=== PATIENT | male | born 1970 | race Caucasian/White ===

== ENCOUNTER 2018-12-21 05:43 | Day surgery (SDC) | payer OTHER ==
--- NOTE | 2018-12-20 19:56 | PDGENHP ---
History and Physical - Chief Complaint RIGHT HIP PAIN - History of Present Illness Diagnosis: 1.~LEFT~HIP PAIN 2. Bilateral Avascular Necrosis; LEFT (stage:3)>>>RIGHT(Stage: 1) 3. 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 ~Joo enjoys walking and stationary bike. Souleymane's~left~hip pain~started April 2018, with~no~recalled trauma or injury, and with~no~previous complaints. Souleymane was given Prednisone 10 mg #10 for his increased hip pain at the end of , initially he had significant relief but soon there after he had~ debilitating~Left hip pain. Presentation today is of~anterior, lateral,~(radiating down to Left knee)~left~ hip pain. ~The hip~does not~wake him~at night and~does~click and catch on~him. Sitting~can be uncomfortable~for him.~Joodoes not~report suffering from lower back pain episodes. Joohas~participated in physical therapy and has not~tried other conservative measures. Joohas~utilized medication for pain management, including Prednisone~( prescribed) and Tramadol.~Joohas used medication since the pain began. Joodenies issues with the right~hip. ~ Joounderstands that~judith~has a hip and pelvis problem which should be researched and wishes to get a better understanding of~his~hip status, followed by an establishment of a treatment strategy, hoping~judith~would be able to get back to~his~well being active life. History: Past medical history:~~ HTN, Hypercholesterolemia~ Souleymane drinks ETOH on a daily basis describes himself as a~"high functioning alcoholic." Relevant familial history:~None which is relevant~ Past surgical history:~ No. Surgery Anesthesia 1 Lumpectomies x2 general 2 Right ear abscess drainage general Joodenies problematic issues with general anesthesia in the past. I have reviewed, verified and agree with the past medical, surgical, family and social history. Current Medications:~has a current medication list which includes the following prescription(s): atorvastatin, gabapentin, and lisinopril. ALLERGIES:~has No Known Allergies. Objective: Physical Examination: Joois 5~feet~11~inches tall and weighs~208~Lbs. Shoe size~8.5. Joois AAO x3; judith~is well-nourished, in NAD. Skin is warm and dry. ~ Breathing is non-labored. ~CV with RRR by pulse. Abdomen is soft, NTND. Currently,~judith~walks with a~abnormal~antalgic gait Lower spine examination is~negative~for sciatic or femoral nerve irritation with negative~SLR &~femoral stretch tests. Range of motion of the spine is normal~for flexion, extension, and rotations,~with no~associated pain. Strength, Sensation and pulses are~normal -~bilaterally Ankles and knees exams are~normal~and~no~mal-alignment is evident.~ Judith~has~no leg length discrepancy. Thigh circumference is~symmetric~with no evidence for muscle atrophy~on both~ sides. Hip ROM (degrees): FL ER At 90~hip FL IR At 90~hip FL AB AD R 105 55 0 30 0 L 105 55 -2 30 0 Specific hip and pelvis tests: Impingement Test CHELLY Roll R Negative Negative Negative L +++ +++ + Glut. Med ITB R Negative 5/5 strength Negative 5/5 strength L Negative 5/5 strength Negative 5/5 strength Greater trochanteric burse is~pain free~on both hips. Piriformis tests: FAIR is~negative,~with no~local signs of neuritis related to sciatic nerve. SIJs examination is~normal~with~normal~CHELLY in relation and local tenderness. Hamstrings tests are~negative~functional contraction and negative~tendinopathy both hips. Imaging: Radiology studies which I~have personally reviewed, analyzed and measured are below: XR: AP of the hip and pelvis: Performed in a~suboptimal~technique Coccyx~below level of~pubic symphysis 0 degrees [place]~Lines are preserved. Minimal~Pathological signs are seen in the Symphysis Pubis.~ Minimal~Pathological signs are seen at the Ischial~tuberosity. ~ Specific measurements show: NSA~ LCE Sourcil~Angle Sharp's angle Lat. Cam Lat. Pincer C.Over~sign Head~Coverage % ATDmm R N 32 0 40 + - - N N L N 29 0 41 + - - N N Pos. wall sign ISS NAD ~~Dysplasia Comments R Negative Negative 10.3~mm Negative L Negative Negative 9.9~mm Negative Sclerosis Sup. Lat. OA Cysts Joint Space-WBZ Joint Space-Medial R + + + 3.8~mm 2.6~mm L + + + 3.5~mm 2.9~mm Left femoral head with sclerosis and subchondral lucency~ MRI shows:~Bilateral femoral head avascular necrosis,~Courteny Classification~ III on the Left; on the Right~Courtney Classification~I Impression and plan:~ Joois a~48 y.o.~active male~suffering from symptomatic~LEFT~hip pain due to Avascular Necrosis~causing significant disability to~him~and altering~his~ sport and life activities. Physical examination, imaging, and~his~story correspond with the diagnosis mentioned above. The etiology for Souleymane's AVN is likely high alcohol intake, while Prednisone is a known risk factor, this was taken after the onset of his symptoms. We explained that~since his Left hip has advanced avascular necrosis, a~core decompression~procedure would~not be a viable option and that a~Total~Hip~ Replacement~could relieve his pain. Since the avascular necrosis in his Right hip is not advanced, Core Decompression with BMAC is still a viable option. We discussed both the Total Hip Replacement and Core Decompression procedures and their respective post op rehabilitation. Joowill review the info presented. We will refer Souleymane to to evaluate for a LEFT Total Hip Replacement. SouleymaneKenyattawill talk with our production control scheduler about possible surgery dates for Right Hip Core Decompression Joois happy with this plan. I have also supplied~him~with handouts, outlining the expected surgical treatment and rehab involved. I wish~SouleymaneKenyattaall the best, ~~ DEBORAH Traore History Information - Allergies/Home Medication List Allergies/Adverse Reactions: No Known Allergies Allergy (Unverified 12/20/18 14:40) Home Medications: Advil 12/20/18 [Last Taken Unknown] Atorvastatin Calcium 12/20/18 [Last Taken Unknown] Lisinopril 05/20/19 [Last Taken Unknown] I have personally reviewed and updated: medical history - Social History Smoking Status: Former smoker Review of Systems Review of Systems: Physical Exam Physical Exam:
[2018-12-21] MEDS ORDERED: PREGABALIN 150 MG CAP PO ONE (06:00)
[2018-12-21] MEDS ORDERED: ceFAZolin 2 GM/DEXTROSE 100 ML IV ONE (06:00)
[2018-12-21] MEDS ORDERED: LR 1,000 ML IV ONE (06:00)
[2018-12-21] MEDS ORDERED: ACETAMINOPHEN 500 MG TAB PO ONE (06:00)
[2018-12-21] MEDS ORDERED: ROCURONIUM 50 MG/5 ML VIAL ONE (06:42)
[2018-12-21] MEDS ORDERED: DEXAMETHASONE 4 MG/ML VIAL ONE (06:42)
[2018-12-21] MEDS ORDERED: ONDANSETRON 4 MG/2 ML VIAL ONE (06:42)
[2018-12-21] MEDS ORDERED: PROPOFOL 200 MG/20 ML VIAL ONE ×2 (06:42→07:21)
[2018-12-21] MEDS ORDERED: LIDOCAINE 2% 5 ML SDV ONE (06:42)
[2018-12-21] MEDS ORDERED: fentaNYL 250 MCG/5 ML INJ ONE (06:42)
[2018-12-21] MEDS ORDERED: BUPIVACAINE/EPI 0.25% 30 ML SDV ONE ×2 (06:58→07:10)
--- NOTE | 2018-12-21 06:58 | POSTANESTH ---
Post Anesthetic Evaluation Cardiovascular Status: Normal, Stable Respiratory Status: Normal, Stable Level of Consciousness/Mental Status: Can Participate in Eval Pain Control: Adequate, Prn Tx Ordered Nausea/Vomiting Control: Adequate, Prn Tx Ordered Complications Possibly Related to Anesthesia: None Noted
--- NOTE | 2018-12-21 06:58 | PDANEPAE ---
ANE Past Medical History - Cardiovascular History Hx Hypertension: No Hx Arrhythmias: No Hx Chest Pain: No Hx Coronary Artery / Peripheral Vascular Disease: No Hx CHF / Valvular Disease: No Hx Palpitations: No - Pulmonary History Hx COPD: No Hx Asthma/Reactive Airway Disease: No Hx Recent Upper Respiratory Infection: No Hx Oxygen in Use at Home: No Hx Sleep Apnea: No Sleep Apnea Screening Result - Last Documented: Negative - Neurologic History Hx Cerebrovascular Accident: No Hx Seizures: No Hx Dementia: No - Endocrine History Hx Diabetes: No - Renal History Hx Renal Disorders: No - Liver History Hx Hepatic Disorders: No - Neurological & Psychiatric Hx Hx Neurological and Psychiatric Disorders: No - Cancer History Hx Cancer: No - Congenital Disorder History Hx Congenital Disorders: No - GI History Hx Gastrointestinal Disorders: No - Other Health History Other Health History: ECZEMA - Chronic Pain History Chronic Pain: No - Surgical History Prior Surgeries: L MARCO ANTONIO 11/2017. LUMPECTOMY ANE Review of Systems Review of Systems: - Exercise capacity METS (RN): 4 METS ANE Patient History - Allergies Allergies/Adverse Reactions: No Known Allergies Allergy (Unverified 12/20/18 14:40) - Home Medications Home Medications: Advil 12/20/18 [Last Taken 12/20/18] Atorvastatin Calcium 12/20/18 [Last Taken 12/20/18] Lisinopril 12/20/18 [Last Taken 12/20/18] - NPO status NPO Since - Liquids (Date): 12/21/18 NPO Since - Liquids (Time): 01:00 NPO Since - Solids (Date): 12/20/18 NPO Since - Solids (Time): 23:00 - Smoking Hx Smoking Status: Former smoker - Family Anes Hx Family Hx Anesthesia Complications: MOTHER W/POST ANESTHESIA NAUSEA ANE Labs/Vital Signs - Vital Signs Blood Pressure: 141/96 Heart Rate: 95 Respiratory Rate: 16 O2 Sat (%): 93 Height: 180.34 cm Weight: 90.718 kg ANE Physical Exam - Airway Neck exam: FROM Mallampati Score: Class 2 Mouth exam: normal dental/mouth exam - Pulmonary Pulmonary: no respiratory distress, no rales or rhonchi, clear to auscultation - Cardiovascular Cardiovascular: regular rate and rhythym, no murmur, rub, or gallop - ASA Status ASA Status: II ANE Anesthesia Plan Anesthesia Plan: general endotracheal anesthesia
[2018-12-21] MEDS ORDERED: fentaNYL 100 MCG/2 ML INJ IVP PRN (08:05)
[2018-12-21] MEDS ORDERED: LR 500 ML IV PRN (08:05)
[2018-12-21] MEDS ORDERED: ONDANSETRON 4 MG/2 ML VIAL IVP PRN (08:05)
[2018-12-21] MEDS ORDERED: PHENYLEPHRINE HCL 100 MCG/ML SYR IVP PRN (08:05)
[2018-12-21] MEDS ORDERED: NALOXONE HCL 0.4 MG/ML INJ IVP PRN (08:05)
[2018-12-21] MEDS ORDERED: PROMETHAZINE HCL 25 MG/ML INJ IVP PRN (08:05)
[2018-12-21] MEDS ORDERED: ALBUTEROL 3 ML DEYVIAL IH PRN (08:05)
[2018-12-21] MEDS ORDERED: oxyCODONE IR 5 MG TAB PO PRN (08:05)
[2018-12-21] MEDS ORDERED: MEPERIDINE 25 MG/0.5 ML AMP IVP PRN (08:05)
[2018-12-21] MEDS ORDERED: ACETAMINOPHEN 500 MG TAB PO PRN (08:05)
[2018-12-21] MEDS ORDERED: HYDROmorphONE/DILAUDID 1 MG/ML INJ IVP PRN (08:05)
[2018-12-21] MEDS ORDERED: NS 500 ML IV PRN (08:05)
[2018-12-21] MEDS ORDERED: SUGAMMADEX SODIUM 200 MG/2 ML VIAL IVP ONE (08:43)
[2018-12-21] MEDS ORDERED: fentaNYL 100 MCG/2 ML INJ ONE (09:11)
[2018-12-21] MEDS ORDERED: DIAZEPAM 5 MG TAB PO PRN (09:35)
[2018-12-21] MEDS ORDERED: DIAZEPAM 10 MG/2 ML SYR IVP PRN (09:38)
[2018-12-21 10:06] VITALS: BP 125/99
--- NOTE | 2018-12-21 10:09 | POSTOPPROG ---
Post Op Note Date of Operation: 12/21/18 Surgeon: Mandeep Cote Baby Attendant: Dr. Colon Anesthesia: GET(General Endotracheal) Pre-op Diagnosis: RIGHT HIP AVN Post-op Diagnosis: RIGHT HIP AVN Procedure: Right hip core decompression with BMAC Inf/Abcess present in the surg proc area at time of surgery?: No
== END 2018-12-21 11:04 | disposition home or self-care (01) ==
LOC: FSGY 05:43
PROVIDERS: ATTEND Orthopaedic Surgery Sports Medicine
PROC: BQ101ZZ Fluoroscopy of Right Hip using Low Osmolar Contrast (ICD-10-PCS; principal; 2018-12-21 07:15)
PROC: 0Q8 Lower Bones, Division (ICD-10-PCS; principal; 2018-12-21 07:15)
PROC: 07DR3ZZ Extraction of Iliac Bone Marrow, Percutaneous Approach (ICD-10-PCS; principal; 2018-12-21 07:15)
DX: M87.051 Idiopathic aseptic necrosis of right femur (principal); I10 Essential (primary) hypertension; E78.5 Hyperlipidemia, unspecified; Z87.891 Personal history of nicotine dependence; Z96.642 Presence of left artificial hip joint
CPT/HCPCS: C1713; J0690; J1100; J2405; J2704; J3010